=== PATIENT | female | born 1950 | race Asian ===

== ENCOUNTER 2022-05-30 16:46 | Emergency (ER) | payer OTHER ==
[~2022-05-30] VITALS: Ht 165.1 cm; Wt 68.0 kg
[2022-05-30 18:58] VITALS: BP 162/97
[2022-05-30] MEDS ORDERED: ACETAMINOPHEN 325 MG TAB PO ONE (20:30)
[2022-05-30] MEDS ORDERED: ACE3T PO (23:01)
== END 2022-05-30 23:31 | disposition home or self-care (01) ==
LOC: EDBD 16:46 → ER 16:46
DX: S82.035A Nondisplaced transverse fracture of left patella, initial encounter for closed fracture (principal); S20.212A Contusion of left front wall of thorax, initial encounter; S60.031A Contusion of right middle finger without damage to nail, initial encounter; S60.041A Contusion of right ring finger without damage to nail, initial encounter; S83.101A Unspecified subluxation of right knee, initial encounter; E78.5 Hyperlipidemia, unspecified; I10 Essential (primary) hypertension; Z86.73 Personal history of transient ischemic attack (TIA), and cerebral infarction without residual deficits; V43.62XA Car passenger injured in collision with other type car in traffic accident, initial encounter; Y93.89 Activity, other specified; Y92.488 Other paved roadways as the place of occurrence of the external cause; Y99.8 Other external cause status
CPT/HCPCS: 71045; 71250; 73130; 73562; 73700; 93005